=== PATIENT | female | born 1945 | race Asian ===

== ENCOUNTER 2021-02-15 11:40 | Outpatient (CLI) | payer MEDICARE | END 2021-02-15 11:41 | disposition home or self-care (01) | LOC: BICRAD 11:40 | PROVIDERS: ATTEND Nurse Practitioner Family | DX: M47.816 Spondylosis without myelopathy or radiculopathy, lumbar region (principal) | CPT/HCPCS: 72110 ==

== ENCOUNTER 2023-01-31 16:21 | Outpatient (CLI) | payer OTHER | END 2023-01-31 16:22 | disposition home or self-care (01) | LOC: SCSRAD 16:21 | PROVIDERS: ATTEND Nurse Practitioner Family | DX: M79.671 Pain in right foot (principal); M19.071 Primary osteoarthritis, right ankle and foot ==